=== PATIENT | female | born 1990 | race Two or more races ===

== ENCOUNTER 2022-03-27 06:22 | Emergency (ER) | payer MEDICAID, OTHER ==
[~2022-03-27] VITALS: Ht 165.1 cm; Wt 68.0 kg
[2022-03-27 06:22] VITALS: BP 113/71
[2022-03-27] MEDS ORDERED: IPRATROPIUM BROM 0.5 MG/2.5ML INH SOL NEB ONE (06:45)
[2022-03-27] MEDS ORDERED: ALBUTEROL SULF 2.5 MG/0.5ML(0.5%) NEB SOLN NEB ONE (06:45)
[2022-03-27] MEDS ORDERED: cefTRIAXone 1GM/50ML D5W 50 ML IV ONE (07:45)
[2022-03-27] MEDS ORDERED: methylPREDNISolone SOD SUCC 125 MG/2 ML VL IV ONE (07:45)
[2022-03-27] MEDS ORDERED: AZIT250T9 PO (08:46)
[2022-03-27] MEDS ORDERED: PRED20TA2 PO (08:46)
[2022-03-27] MEDS ORDERED: cefTRIAXone SOD 1,000 MG VL IM ONE (10:15)
== END 2022-03-27 10:22 | disposition home or self-care (01) ==
LOC: EDBD 06:22 → ER 06:22
DX: J45.901 Unspecified asthma with (acute) exacerbation (principal)
CPT/HCPCS: 71045; 94640; 96372; 96374; 99283; J0696; J2930; J7644